=== PATIENT | female | born 1955 | race African-American/Black ===

== ENCOUNTER 2017-04-11 10:19 | Emergency (ER) | payer OTHER ==
[2017-04-11] MEDS ORDERED: methylPREDNISolone SOD SUCC 125 MG/2 ML VIAL ONE (10:20)
[2017-04-11] MEDS ORDERED: diphenhydrAMINE HCL 50 MG/ML VIAL ONE (10:20)
[2017-04-11] MEDS: 0.9 % SODIUM CHLORIDE 1,000 ML IV SCH (10:20)
[2017-04-11] MEDS ORDERED: 0.9 % SODIUM CHLORIDE 1,000 ML IV ONE (10:21)
[2017-04-11] MEDS: diphenhydrAMINE HCL 50 MG/ML VIAL IVP ONE (10:25)
[2017-04-11] MEDS: methylPREDNISolone SOD SUCC 125 MG/2 ML VIAL IVP ONE (10:29)
[2017-04-11 10:42] LABS: BASOPHILS % 0.3 (0.0-1.5); EOSINOPHILS % 2.4 % (0.0-6.8); MEAN CORPUSCULAR HEMOGLOBIN 29.4 pg (28.0-34.0); MEAN CORPUSCULAR VOLUME 89.1 fl (80.0-100.0); MONOCYTES % 5.1 % (0.0-11.0); NEUTROPHILS # 3.5 # k/uL (1.4-7.7)
[2017-04-11 11:05] LABS: eGFR (African) > 60; eGFR (Non-African) > 60
--- NOTE | 2017-04-11 11:17 | ED Physician Documentation ---
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 denies: headache, fainting, difficulty walking, difficulty with speech, anxiety, depression - PAST HX Past History: other (breast ca) Other History: none Surgeries/Procedures: other (appendectomy, , mastectomy) Immunizations: referred to PCP Allergies/Adverse Reactions: Allergies Allergy/AdvReac Type Severity Reaction Status Date / Time bee venom (honey bee) Allergy Severe Anaphylaxis Verified 04/11/17 10:45 Home Medications: Ambulatory Orders Medication Instructions Recorded Exemestane [Aromasin] 25 mg PO QDAY 04/11/17 - SOCIAL HX Smoking History: non-smoker Alcohol Use: none Drug Use: none - FAMILY HX Family History: No - VITAL SIGNS Vital Signs: Vital Signs Temp Pulse Resp BP Pulse Ox 99.3 F 107 H 18 122/66 98 04/11/17 10:19 04/11/17 10:19 04/11/17 10:19 04/11/17 10:19 04/11/17 10:19 - REVIEWED ASSESSMENTS Nursing Assessment Reviewed: Yes Vitals Reviewed: Yes Progress - Results/Orders Results/Orders: cbc, cmp ordered - Progress Progress: Pt. given 125 mg solu medrol ivp, 50 mg benadryl ivp, 1 liter ns iv Critical Care Note - Critical Care Note Total Time (mins): 0 ED Results Lab/Radiology - Lab Results Lab Results: Lab Results 04/11/17 10:35 WBC 6.90 K/ul K/ul (4.00-12.00) RBC 4.80 M/ul M/ul (3.90-5.20) Hgb 14.1 g/dL g/dL (12.0-16.0) Hct 42.8 % % (34.5-46.5) MCV 89.1 fl fl (80.0-100.0) MCH 29.4 pg pg (28.0-34.0) MCHC 33.0 g/dL g/dL (30.0-36.0) RDW 12.8 % % (11.3-14.3) Plt Count 293 K/mm3 K/mm3 (130-400) Neut % (Auto) 50.9 % % (39.0-79.0) Lymph % (Auto) 39.2 % % (16.0-50.0) [place] % (Auto) 5.1 % % (0.0-11.0) Eos % (Auto) 2.4 % % (0.0-6.8) Baso % (Auto) 0.3 (0.0-1.5) Neut # (Auto) 3.5 # k/uL # k/uL (1.4-7.7) Lymph # (Auto) 2.7 # k/uL # k/uL (0.6-4.0) [place] # (Auto) 0.4 # k/uL # k/uL (0.0-0.9) Eos # (Auto) 0.2 # k/uL # k/uL (0.0-0.6) Baso # (Auto) 0.0 # k/uL # k/uL (0.0-0.5) Reactive Lymphs % 2.2 % % (0.0-5.0) Reactive Lymphs # 0.2 # k/uL # k/uL (0.0-0.8) - Radiology Radiology Impressions: none ordered - Orders Orders: ED Orders Category Date Time Status Place IV Lock 1T Care 04/11/17 10:23 Active CBC/PLATELET/DIFF Routine Lab 04/11/17 10:35 Completed CMP Routine Lab 04/11/17 10:35 Received 0.9 % Sodium Chloride [Normal Saline] 1,000 ml Med 04/11/17 10:30 Ordered IV .Q1H 0.9 % Sodium Chloride [Normal Saline] 1,000 ml Med 04/11/17 10:21 Discontinued IV .STK-MED diphenhydrAMINE HCL [Benadryl] Med 04/11/17 10:20 Discontinued 50 mg .ROUTE .STK-MED ONE diphenhydrAMINE HCL [Benadryl] Med 04/11/17 10:23 Discontinued 50 mg IVP NOW ONE methylPREDNISolone SOD SUCC [Solu-MEDROL] Med 04/11/17 10:20 Discontinued 125 mg .ROUTE .STK-MED ONE methylPREDNISolone SOD SUCC [Solu-MEDROL] Med 04/11/17 10:23 Discontinued 125 mg IVP NOW ONE General Adult Physical Exam - PHYSICAL EXAM GENERAL APPEARANCE: moderate distress EENT: eye inspection normal, ENT inspection normal, pharynx normal, no signs of dehydration, SHIMON, no nystagmus, TM's nml NECK: normal inspection, thyroid normal, supple RESPIRATORY: no resp distress, chest non-tender, breath sounds normal CVS: reg rate & rhythm, heart sounds normal, equal pulses, no murmur, no gallop , PMI nml, no JVD, no friction rub ABDOMEN: soft, no organomegaly, normal bowel sounds, no abdominal bruit, no distension, non-tender BACK: normal inspection, no CVA tenderness SKIN: warm/dry, normal color EXTREMITIES: non-tender, normal range of motion, no evidence of injury, no edema NEURO: oriented X3, CN's nml as tested, motor nml, sensation nml, mood/affect nml, cognition normal Discharge Clincal Impression: Angioedema Qualifiers: Encounter type: initial encounter Qualified Code(s): T78.3XXA - Angioneurotic edema, initial encounter Bee sting Qualifiers: Encounter type: initial encounter Injury intent: undetermined intent Qualified Code(s): T63.444A - Toxic effect of venom of bees, undetermined, initial encounter Referrals: Primary Doctor,No [Primary Care Provider] - 2 Days Home Medications: Ambulatory Orders Exemestane [Aromasin] 25 mg PO QDAY 04/11/17 Comments: Discharged with script for prednisone 60 mg x 1 day, 40 mg x 1 day, 30 mg x 1 day, 20 mg x 1 day, 10 mg x 1 day then off. Condition: Stable Disposition: 01 HOME, SELF-CARE Decision to Admit: NO Decision Time: 11:00
[2017-04-11 11:37] VITALS: BP 134/51
== END 2017-04-11 11:18 | disposition home or self-care (01) ==
LOC: ED 10:19
DX: T78.3XXA Angioneurotic edema, initial encounter (principal); T63.444A Toxic effect of venom of bees, undetermined, initial encounter; X58.XXXA Exposure to other specified factors, initial encounter; Y93.9 Activity, unspecified; Y99.9 Unspecified external cause status
CPT/HCPCS: 80053; 85025; J1200; J2930; J7030; 96361; 96374; 96375; 99283; S1016